=== PATIENT | female | born 1975 | race Caucasian/White ===

== ENCOUNTER → 2021-06-16 | Outpatient (CLI) | payer OTHER ==
[~2021-06-16] MED LIST: ALPRAZOLAM0.5 MG PO; ASMANEX HFA13 G1 INH; BACTRIM DS TAB1 EACH PO; BENZONATATE200 MG PO; IMDUR ER TAB 6060 MG PO; KEFLEX CAP 500500 MG PO; KLOR-CON M2020 MEQ PO; LASIX20 MG PO; LOPRESSOR50 MG PO; LOVENOX SY40 MG/0.4 SQ; NEURONTIN 300300 MG PO; NITROSTAT0.4 MG SL; NORCO 7.5-3251 EACH PO; PERCOCET 7.5-31 EACH PO; PHENERGAN 12.12.5 M1 PO; PROTONIX40 MG PO; SYNTHROID50 MCG PO; THERAGRAN M TAB1 EA PO; TRENTELIX PO; ZOCOR20 MG PO
== END ==
LOC: KOH-I 13:16
DX: M25.511 Pain in right shoulder (principal); S43.001A Unspecified subluxation of right shoulder joint, initial encounter
CPT/HCPCS: 73030